=== PATIENT | male | born 1975 | race Caucasian/White ===

== ENCOUNTER 2017-07-05 17:46 | Emergency (ER) | payer MEDICAID, OTHER ==
[~2017-07-05] VITALS: Ht 167.6 cm; Wt 73.0 kg
[2017-07-05 17:57] VITALS: Ht 167.6 cm; Wt 73.0 kg
[2017-07-05] MEDS ORDERED: IBUPROFEN 600 MG TAB PO ONE (20:00)
[2017-07-05] MEDS ORDERED: IBUP-1542 PO (20:40)
[2017-07-05] MEDS ORDERED: ORPH100T PO (20:40)
--- NOTE | 2017-07-05 20:53 | ERD ---
ER Documentation Chief Complaint Date/Time DATE: 07/05/17 TIME: 20:44 Chief Complaint pt bib family with c/o left sided neck pain since am "stiff" HPI This is a 41-year-old male presents to the ER with left-sided neck pain and stiffness that started upon waking up this morning. Patient denies any trauma to the neck. He denies any upper extremity weakness. Patient denies any fevers or chills. Patient states that her neck is sore, pain does not radiate anywhere. He has not taken anything for the pain. Patient was at work all day and states that this made his pain worse. ROS 12 point review of systems was done, all negative except per HPI. Medications Home Meds Active Scripts Orphenadrine Citrate (Norflex) 100 Mg Tablet.sa, 100 MG PO BID for 3 Days, TAB.SA Prov:IRENE LOUIS 07/05/17 Ibuprofen* (Motrin*) 600 Mg Tab, 600 MG PO Q6, #30 TAB Prov:IRENE LOUIS 07/05/17 Allergies Allergies: Coded Allergies: No Known Allergy (Unverified , 07/05/17) PMhx/Soc Medical and Surgical Hx: pt denies Medical Hx, pt denies Surgical Hx History of Surgery: No Anesthesia Reaction: No Hx Neurological Disorder: No Hx Respiratory Disorders: No Hx Cardiac Disorders: No Hx Psychiatric Problems: No Hx Miscellaneous Medical Probl: No Hx Alcohol Use: No Hx Substance Use: No Hx Tobacco Use: No Smoking Status: Never smoker Physical Exam Vitals Vital Signs Date Time Temp Pulse Resp B/P Pulse Ox O2 Delivery O2 Flow Rate FiO2 07/05/17 17:57 98.3 84 16 145/99 98 Physical Exam GENERAL: The patient is well developed and appropriate for usual state of health , in no apparent distress. HEENT: Atraumatic. Conjunctivae are pink. Pupils equal, round, and reactive to light. Extraocular muscles are grossly intact. Bilateral tympanic membranes are clear with no evidence of erythema, effusion or dulling of the light reflex. The oropharynx is clear with no erythema or exudates. NECK: C-spine is soft and supple. There is no cervical lymphadenopathy. No surface trauma, no open wounds patient has muscle tenderness and spasm of the left trapezius. Painful lateral bending to the left. Normal flexion and extension. CHEST: Clear to auscultation bilaterally. There are no rales, wheezes or rhonchi. HEART: Regular rate and rhythm. No murmurs, clicks, rubs or gallops. NEURO: Alert and oriented. Results 24 hrs Current Medications Medications (Trade) Dose Ordered Sig/Luci Route PRN Reason Start Time Stop Time Status Last Admin Dose Admin Ibuprofen (Motrin) 600 mg ONCE ONCE PO 07/05/17 20:00 07/05/17 20:01 DC 07/05/17 20:01 Procedures/MDM Nexus criteria assessment: MLTTP: None Intoxication: None Distracting Injury: None Focal Neurodeficit: None AMS: None Patient does not meet criteria for cervical imaging. Differential diagnosis includes but is not limited to muscle strain, spasm, torticollis, ligamentous injury, fracture, subluxation, spinal cord injury. Likely has torticollis. Suspicion for ligament injury or spinal cord injury is low. Patient does not have any upper extremity weakness or paresthesias. Her fracture is low, patient has not had any trauma to the area. Is afebrile and well-appearing there is no evidence of hypotension, bradycardia, flushed or dry skin. Will be sent home with ibuprofen and with Norflex. He is to follow-up with his primary care doctor within 1-2 days or return to ER sooner if symptoms worsen. My medical decision making was shared with the patient he understands and agrees with plan. Departure Diagnosis: Primary Impression: Torticollis Condition: Stable Patient Instructions: Torticollis (Wry Neck) Additional Instructions: Call your primary care doctor TOMORROW for an appointment during the next 1-2 days.See the doctor sooner or return here if your condition worsens before your appointment time. IRENE LOUIS Jul 05, 2017 20:53
== END 2017-07-05 20:45 | disposition home or self-care (01) ==
LOC: FTE 17:46
DX: M43.6 Torticollis (principal)
CPT/HCPCS: Z7502; Z7610; 99283